=== PATIENT | male | born 1975 | race Caucasian/White ===

== ENCOUNTER → 2021-06-03 | Outpatient (CLI) | payer BC | LOC: M RAD 16:51 | PROVIDERS: ATTEND Physician Assistant | DX: M25.461 Effusion, right knee (principal); M25.462 Effusion, left knee ==

== ENCOUNTER 2023-07-11 11:01 | Emergency (ER) | payer BC, OTHER ==
[~2023-07-11] VITALS: Ht 180.3 cm; Wt 107.8 kg
[2023-07-11] MEDS ORDERED: hydrALAZINE 20MG/ML 1ML VIAL IV ONE ×2 (11:45→12:55)
[2023-07-11] MEDS ORDERED: ISOVUE-370 76% 100ML VIAL As Ordered ONE (11:58)
[2023-07-11 11:59] LABS: BASO % 0.6 % (0.0-1.0); EOS # 0.3 10^3/uL (0.0-0.5); EOS % 4.3 % (0.0-3.0); HEMATOCRIT 43.5 % (42.0-52.0); HEMOGLOBIN 14.1 g/dl (13.5-17.5); LYMPH # 1.6 10^3/uL (1.5-5.0); LYMPH % 24.1 % (24.0-44.0); MEAN CORPUSCULAR HEMOGLOBIN 28.4 pg (27.0-33.0); MEAN CORPUSCULAR HGB CONC 32.4 g/dl (32.0-36.5); MEAN CORPUSCULAR VOLUME 87.5 fl (80.0-96.0); MONO # 0.8 10^3/uL (0.0-0.8); MONO % 12.3 % (2.0-8.0); NEUTROPHILS % 58.1 % (36.0-66.0); PLATELET COUNT, AUTOMATED 214 10^3/uL (150-450); RED BLOOD COUNT 4.97 10^6/uL (4.30-6.10); WHITE BLOOD COUNT 6.8 10^3/uL (4.0-10.0)
[2023-07-11 12:24] VITALS: BP 190/122
[2023-07-11 12:29] LABS: ALBUMIN 3.5 G/DL (3.2-5.2); ALKALINE PHOSPHATASE 50 U/L (46-116); ALT/SGPT 45 U/L (7.0-40); AST/SGOT 14 U/L (<34); BILIRUBIN,TOTAL 0.4 MG/DL (0.3-1.2); BLOOD UREA NITROGEN 10 MG/DL (9-23); CALCIUM LEVEL 8.4 MG/DL (8.5-10.1); CARBON DIOXIDE LEVEL 24 MMOL/L (20-31); CHLORIDE LEVEL 108 MMOL/L (98-107); CK-MB VALUE MASS 2.2 NG/ML (<3.6); CREATININE FOR GFR 0.78 MG/DL (0.70-1.30); GLOMERULAR FILTRATION RATE > 60.0 (>60); GLUCOSE, FASTING 132 MG/DL (60-100); POTASSIUM SERUM 4.1 MMOL/L (3.5-5.1); SODIUM LEVEL 138 MMOL/L (136-145)
[2023-07-11 12:31] LABS: CPK CREATINE PHOSPHOKINASE 141 U/L (46-171); MB/CK RELATIVE INDEX 1.56 (< OR =4)
[2023-07-11 14:00] VITALS: BP 163/112; TEMP 98.6; O2SAT 99
[2023-07-11] MEDS ORDERED: LISI10TA22 PO (14:07)
== END 2023-07-11 14:28 | disposition home or self-care (01) ==
LOC: M ED 11:01
DX: I10 Essential (primary) hypertension (principal); R10.9 Unspecified abdominal pain; S80.912A Unspecified superficial injury of left knee, initial encounter; X58.XXXA Exposure to other specified factors, initial encounter; Y92.89 Other specified places as the place of occurrence of the external cause; Y93.89 Activity, other specified; Y99.8 Other external cause status
CPT/HCPCS: 71045; 73564; 74177; 80047; 80053; 82550; 82553; 84484; 85025; 93005; 93041; 94760; 96374; 96376; 99285; J0360; Q9967

== ENCOUNTER → 2023-07-22 | Outpatient (CLI) | payer OTHER ==
[~2023-07-22] MED LIST: LISI10TA22 PO
== END ==
LOC: M SOG 09:25
PROVIDERS: ATTEND Physician Assistant
DX: M25.462 Effusion, left knee (principal)

== ENCOUNTER 2023-09-29 09:00 | Outpatient (RCR) | payer OTHER | END 2023-09-30 | LOC: M PT 09:00 | PROVIDERS: ATTEND Physician Assistant | DX: M25.562 Pain in left knee (principal) ==

== ENCOUNTER → 2023-10-16 | Outpatient (CLI) | payer OTHER | LOC: M RAD 08:39 | PROVIDERS: ATTEND Physician Assistant | DX: M23.8X2 Other internal derangements of left knee (principal); S83.242A Other tear of medial meniscus, current injury, left knee, initial encounter; X58.XXXA Exposure to other specified factors, initial encounter; Y92.9 Unspecified place or not applicable ==

== ENCOUNTER 2024-01-25 08:08 | Day surgery (SDC) | payer BC ==
[~2024-01-25] VITALS: Ht 180.3 cm; Wt 105.3 kg
[~2024-01-25 08:08] MED LIST changes: +BAYE81TA10 PO; +LIDOCAINE 2% 100MG/5ML SDV (FOR ANES.) As Ordered ONE; +METF500T13 PO; +OXYC1TAB23 PO; +propofoL 200 MG/20 ML VIAL As Ordered ONE
[2024-01-25] MEDS: NS 1,000 ML IV ONE (08:56)
[2024-01-25 09:46] VITALS: TEMP 96.5
[2024-01-25 10:10] VITALS: BP 120/77; O2SAT 96
== END 2024-01-25 10:12 | disposition home or self-care (01) ==
LOC: M OPP 08:08
PROVIDERS: ATTEND Internal Medicine Gastroenterology
DX: Z12.11 Encounter for screening for malignant neoplasm of colon (principal); Z80.0 Family history of malignant neoplasm of digestive organs; D12.3 Benign neoplasm of transverse colon; K63.5 Polyp of colon; K64.8 Other hemorrhoids; K57.30 Diverticulosis of large intestine without perforation or abscess without bleeding; E11.9 Type 2 diabetes mellitus without complications; Z79.82 Long term (current) use of aspirin; Z79.84 Long term (current) use of oral hypoglycemic drugs; Z79.891 Long term (current) use of opiate analgesic; Z79.899 Other long term (current) drug therapy